=== PATIENT | female | born 1940 | race Caucasian/White ===

== ENCOUNTER 2019-07-03 07:07 | Emergency (ER) | payer OTHER, MEDICARE ==
[2019-07-03 07:18] VITALS: BMI 29.7
--- NOTE | 2019-07-03 08:08 | PDOC ---
*Physical Exam - Vital Signs Last Vital Signs Temp Pulse Resp BP Pulse Ox 97.9 F 79 14 140/61 97 07/03/19 07:13 07/03/19 07:13 07/03/19 07:13 07/03/19 07:13 07/03/19 07:13 Heart Score/ECG Review - ECG Impressions Comment:: 07/03/19 11:06 HR 78, NSR, normal intervals, no deviations, no UBALDO/STD/TWI ED Treatment Course - LABORATORY CBC & Chemistry Diagram: 07/03/19 08:27 07/03/19 08:11 Medical Decision Making - Medical Decision Making 07/03/19 08:05 Patient seen and evaluated as pre-attending with Dr. Mccann (PGY-2) and Dr. Davis (Attending) 07/03/19 08:25 78 y/o female here with RUE tingling that starts in her shoulder and runs through all of her fingers. No numbness, no weakness. Reports she cleaned out the attic recently and carried a trash bag with her R arm but no known trauma. PMHx of CKD, recurrent UTI's, and melanoma (s/p resection in 2014). Symptoms started yesterday evening and persisted into the morning prompting her visit to the ED. States she took one Aspirin because she was afraid she was having a stroke. On PE patient is well appearing and has intact DTR's, 4+ strength, full ROM with no point tenderness. Will evaluate for muscle strain, electrolyte derangement, also consider r/o ACS , nerve impingement. Consider CA mets, however will refrain from CT at this time - patient does have FH of sister with Breast CA w/mets; patient reports no weight loss or weakness. 07/03/19 10:20 Troponin (-) x1, Cr 1.8 (previous Cr 0.9 in 2012) - patient has known h/o CKD follows w/nephrology EKG w/o acute ischemic change as documented in EKG section of EMR. XR w/scalpular calcifications - no signs suggesting tumor including no soft tissue swelling, fracture Will d/c with instruction to f/u with PMD and Finance And Administration Manager. Patient given copy of EKG and labs. Discharge - Discharge Information Problems reviewed: Yes Clinical Impression/Diagnosis: Arm paresthesia, left Condition: Good Disposition: HOME - Follow up/Referral Referrals: Emilee Monreal MD [Staff Physician] - Chris Sifuentes MD [Primary Care Provider] - - Patient Discharge Instructions Patient Printed Discharge Instructions: DI for Arm Pain Additional Instructions: You were seen today for numbness/tinging in your left arm. Your EKG and blood work did not show any life threatening problems. Your symptoms are not likely to be from your heart or a stroke. Your xrays showed a possible buildup of calcification in your left shoulder. This could be the cause of your symptoms. It could also be a change related to your history of melanoma. You should discuss this finding with your primary care doctor and your process mold technician. You can take over the counter Tylenol as needed for pain. Take as directed on the package insert. Do not exceed the recommended dosage. Follow up with your primary care doctor in the next week. You will need to call to make an appointment. The number is included in this packet. A copy of today s results are attached to this packet including the xray disc. Take it to the appointment so your doctor can review them. Go to the nearest emergency department if your condition worsens or you feel like you need additional emergency evaluation. Print Language: SWEDISH - Post Discharge Activity
[2019-07-03] MEDS ORDERED: ACETAMINOPHEN 325 MG TABLET (FP) PO ONE (08:12)
--- NOTE | 2019-07-03 08:12 | PDOC ---
History of Present Illness - General Chief Complaint: Pain, Acute Stated Complaint: left arm pain Time Seen by Provider: 07/03/19 07:35 History Source: Patient, Old Records, Other ([facility]) Exam Limitations: No Limitations - History of Present Illness Initial Comments: HPI: 78 y/o female presenting to [facility] ER complaining of numbness / tingling to the posterolateral aspect of her left arm with episodic radiation to all five digits of the right hand. Started last evening at bedtime. Denies weakness or difficulty moving the shoulder, elbow, wrist, or hand. Denies trauma to the extremity or to the back. Denies associated chest pain or SOB. Initially believed the symptoms were related to her sleeping position, but the symptoms did not completely resolved after changing position. Reports the symptoms have significantly improved but not resolved at time of presentation. Expressed concern that she was having a heart attack. Took an ASA early this morning. Of note, the pt started Cefuroxime on 30 Jun 2019 for acute cystitis. Medical Hx: - HTN - CKD, stage unknown - H/o Melanoma, s/p resection in 2014 - reportedly clean margins Review of Systems: In addition to that documented in the HPI above, the additional ROS was obtained : Constitutional- Denies fevers or chills Head- Denies vision changes ENMT- Denies sore throat CV- Denies chest pain Resp- Denies SOB GI- Denies abd pain, vomiting, or diarrhea - Denies painful urination MSK- Denies recent trauma Skin- Denies new rashes Neuro- Per HPI Endocrine- Denies polyuria Heme- Denies bleeding or bruising Physical Examination: Vital signs and nursing notes reviewed. Constitutional- Well-developed, well-nourished elderly adult female in no acute distress or obvious discomfort. Found sitting upright on edge of hospital bed. Answered all questions appropriately and completely. Head- Normocephalic. No obvious external signs of trauma. Neck- Supple, trachea is midline. Cardiovascular / Chest- Regular rate and regular rhythm. No murmur, rubs, clicks , or gallops. Peripheral pulses- radial pulses full. No anterior chest wall discomfort with palpation. Respiratory- Breathing unlabored. Equal chest rise and fall. Clear to auscultation bilaterally. No stridor, no wheezing, no rhonchi. Left Arm- Proximal and distal strength 5/5. Strong and symmetrical consultant electronics strength when compared to right. Normal active ROM of shoulder, elbow, wrist, and digits. No tenderness to palpation. Sensation not exacerbated by palpation. Extremity appears warm and well perfused. Back- No midline or paraspinal tenderness to cervical or thoracic regions. No signs of trauma or other skin changes. Noted well healed surgical scar overlying left upper back. Neuro- Alert and oriented x4. Moving all four extremities spontaneously. No facial asymmetry. No slurred speech. Skin- Warm, dry, and intact. Psych- Affect- appropriate. Mood- normal. Speech was non-labored, non- pressured. MDM: 78 y/o female presenting with left arm paresthesia with episodic radiation to left hand x1 day. Afebrile. Vitals unremarkable for hypotension or tachycardia. Physical exam as described above. Suspect possible radiculopathy secondary to sleeping position vs arthritic changes vs muscle strain. Low suspicion for ACS/ anginal equivalent vs CVA/TIA vs occult trauma. Considered radiculopathy secondary to metastatic disease as previous lesion was overlying the left shoulder. EKG unremarkable for ischemic findings. Reviewed laboratory data. No anemia. Troponin not elevated. Noted Cr elevation. Documented history of CKD, stage [facility]. Pt reports she has already been referred to a bread icer. Reviewed plain films and radiology reports. Noted calcifications. Will provide the pt with results and copies of the plain films. Encouraged pt to f/u closely with her PCP and with her assistive technology trainer with concern for possible metastatic lesion vs arthritic changes. Discussed physical exam findings, laboratory results, and xrays findings with pt. Answered all questions. Provided return precautions. pt expressed verbal understanding and agreement with plan to discharge home with outpatient follow up. Provided copies of todays results. Chris Mccann M.D., PGY2 Emergency Medicine Resident Past History - Past Medical History Allergies/Adverse Reactions: Allergies Allergy/AdvReac Type Severity Reaction Status Date / Time No Known Allergies Allergy Verified 07/03/19 07:18 Cancer: Yes (MELANOMA ON BACK- REMOVED) COPD: No GI Disorders: (frequent uti) HTN: Yes (CONTROLLED) - Psycho Social/Smoking Cessation Hx Smoking History: Never smoked Hx Alcohol Use: No Drug/Substance Use Hx: No *Physical Exam - Vital Signs Last Vital Signs Temp Pulse Resp BP Pulse Ox 97.9 F 79 14 140/61 97 07/03/19 07:13 07/03/19 07:13 07/03/19 07:13 07/03/19 07:13 07/03/19 07:13 ED Treatment Course - LABORATORY CBC & Chemistry Diagram: 07/03/19 08:27 07/03/19 08:11 - RADIOLOGY Radiology Studies Ordered: Category Date Time Status CHEST PA & LAT [RAD] Stat Radiology 07/03/19 08:11 Ordered SHOULDER-RIGHT [RAD] Stat Radiology 07/03/19 08:11 Ordered Discharge - Discharge Information Problems reviewed: Yes Clinical Impression/Diagnosis: Arm paresthesia, left Condition: Good Disposition: HOME - Admission No - Follow up/Referral Referrals: Chris Sifuentes MD [Primary Care Provider] - Emilee Monreal MD [Staff Physician] - - Patient Discharge Instructions Patient Printed Discharge Instructions: DI for Arm Pain Additional Instructions: You were seen today for numbness/tinging in your left arm. Your EKG and blood work did not show any life threatening problems. Your symptoms are not likely to be from your heart or a stroke. Your xrays showed a possible buildup of calcification in your left shoulder. This could be the cause of your symptoms. It could also be a change related to your history of melanoma. You should discuss this finding with your primary care doctor and your assistive technology trainer. You can take over the counter Tylenol as needed for pain. Take as directed on the package insert. Do not exceed the recommended dosage. Follow up with your primary care doctor in the next week. You will need to call to make an appointment. The number is included in this packet. A copy of today s results are attached to this packet including the xray disc. Take it to the appointment so your doctor can review them. Go to the nearest emergency department if your condition worsens or you feel like you need additional emergency evaluation. Print Language: GREEK - Post Discharge Activity
[2019-07-03] MEDS ORDERED: ACETAMINOPHEN 325 MG TABLET (FP) ONE (08:17)
[2019-07-03 08:41] LABS: BASO % 0.4 % (0-2.0); EOS % 2.7 % (0-4.5); HEMATOCRIT 41.1 % (32.4-45.2); HEMOGLOBIN 13.3 GM/dL (10.7-15.3); LYMPH % 5.7 % (8-40); MCH 27.8 pg (25.7-33.7); MCHC 32.3 g/dl (32.0-36.0); MEAN CELL VOLUME 85.9 fl (80-96); MEAN PLT VOLUME 7.8 fl (7.5-11.1); MONO % 5.3 % (3.8-10.2); NEUT % 85.9 % (42.8-82.8); PLATELET COUNT 266 K/MM3 (134-434); RBC 4.78 M/mm3 (3.60-5.2); RDW 13.5 % (11.6-15.6); WHITE BLOOD COUNT 11.4 K/mm3 (4.0-10.0)
[2019-07-03 09:14] LABS: ALBUMIN 3.6 g/dl (3.4-5.0); BILIRUBIN,TOTAL 0.5 mg/dL (0.2-1); BLOOD UREA NITROGEN 24.3 mg/dL (7-18); CALCIUM 9.5 mg/dL (8.5-10.1); CREATININE 1.8 mg/dL (0.55-1.3); MAGNESIUM 2.5 mg/dL (1.8-2.4); PHOSPHOROUS 3.2 mg/dL (2.5-4.9); POTASSIUM 4.7 mmol/L (3.5-5.1); TOT PROT 7.3 g/dl (6.4-8.2)
[2019-07-03 10:29] VITALS: BP 152/72; PULSE 80; TEMP 98.1
--- NOTE | 2019-07-03 10:32 | PDOC ---
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 Patient first noted symptoms around 11 PM when she was lying on her left arm and felt paresthesias to her lateral left upper arm, repositioned and the symptoms improved, but then noted recurrence throughout the night and upon awakening this morning had separate [id number]-lydlkjs in her second through fifth digits of her left hand, so she presents for evaluation. No associated weakness, no headache/vision change/ speech change/nausea/neck pain/deficit. No history of same, presents with concern for stroke. - Physicial Exam PE: 07/03/19 10:29 Vitals are normal Pleasant elderly woman seated comfortably in stretcher in no acute distress Healed left scapular incisional scar without recurrence of mass or skin abnormality 5 out of 5 flexion/extension of all upper extremity joints, including hand strength. Sensation intact. NEURO: Mental status: The patient is alert and oriented x3. Cranial nerves: Cranial nerves II through XII are intact Motor: The upper extremities are 5 over 5 in all muscle groups. The lower extremities are 5 over 5 in all muscle groups. No pronator drift. Sensation: Sensation is intact to light touch throughout. Cerebellar: Vwakeu-eeyjvy-jscr is normal in both upper extremities. Heel-knee- gallego is normal in both lower extremities. Reflexes: 2+ and symmetric in the upper and lower extremities. Gait: Normal. Heel and toe walking are normal. Tandem gait is normal. - Medical Decision Making 07/03/19 10:29 78-year-old female presents with subjective paresthesia of left upper extremity in a nondermatomal/radicular distribution and without any red flags on history or physical exam to suggest focal neurological process. Labs were sent and are within normal limits/baseline, patient has CKD and is under the care of Dr. Davidson, has second appointment next week X-ray shows calcifications in the area of melanoma surgery, will encourage patient to follow-up with dermatology for further imaging as needed No indication for focal neurological or infectious or vascular process, understands return criteria Heart Score/ECG Review #1 ECG reviewed & interpreted by me at: 07:25 General ECG Interpretation: Sinus Rhythm, Normal Rate (78), Normal Intervals ( qtc 412), No acute ischemic changes
--- NOTE | 2019-07-03 10:33 | EKG ---
Test Reason : Blood Pressure : / mmHG Vent. Rate : 078 BPM Atrial Rate : 078 BPM P-R Int : 152 ms QRS Dur : 094 ms QT Int : 362 ms P-R-T Axes : 048 -42 033 degrees QTc Int : 412 ms NORMAL SINUS RHYTHM LEFT AXIS DEVIATION ABNORMAL ECG WHEN COMPARED WITH ECG OF 21-AUG-2007 15:40, NO SIGNIFICANT CHANGE WAS FOUND Confirmed by Zana Collins MD ([id number]) on 07/03/2019 10:32:53 AM Referred By: Confirmed By:Zana Collins MD
== END 2019-07-03 10:15 | disposition home or self-care (01) ==
LOC: JER 07:07
DX: R20.2 Paresthesia of skin (principal); I12.9 Hypertensive chronic kidney disease with stage 1 through stage 4 chronic kidney disease, or unspecified chronic kidney disease; N18.9 Chronic kidney disease, unspecified; Z85.820 Personal history of malignant melanoma of skin; Z87.440 Personal history of urinary (tract) infections
CPT/HCPCS: 36415; 71046-TC-FY; 73030-TC-RT-FY; 80053; 82550; 83735; 84100; 84484; 85025; 93005; 93010; 99285-25

== ENCOUNTER 2021-01-21 20:40 | Inpatient (IN) | payer OTHER, MEDICARE ==
[2021-01-21] MEDS ORDERED: ACETAMINOPHEN 1000 MG/100 ML VIAL (NON FORMULARY) IVPB ONE (21:26)
[2021-01-21] MEDS ORDERED: LIDOCAINE 5% TOPICAL PATCH TP ONE (21:26)
[2021-01-21] MEDS ORDERED: LIDOCAINE PATCH REMOVAL MC SCH (22:00)
[2021-01-21] MEDS ORDERED: ACETAMINOPHEN INJECTION 100 ML IVPB ONE (22:06)
[2021-01-21] MEDS ORDERED: LIDOCAINE 5% TOPICAL PATCH ONE (22:06)
[2021-01-21 22:30] LABS: BASO % 1.5 % (0-2.0); EOS % 0.1 % (0-4.5); HEMATOCRIT 35.8 % (32.4-45.2); HEMOGLOBIN 11.9 GM/dL (10.7-15.3); MCH 27.9 pg (25.7-33.7); MCHC 33.1 g/dl (32.0-36.0); MEAN CELL VOLUME 84.3 fl (80-96); MEAN PLT VOLUME 7.8 fl (7.5-11.1); NEUT % 87.4 % (42.8-82.8); PLATELET COUNT 183 10^3/uL (134-434); RBC 4.25 M/mm3 (3.60-5.2)
[2021-01-21 22:50] LABS: CALCIUM 8.8 mg/dL (8.5-10.1)
[2021-01-21 22:51] LABS: ALBUMIN 3.5 g/dl (3.4-5.0)
[2021-01-21 22:54] LABS: CREATININE 2.2 mg/dL (0.55-1.3)
[2021-01-21 22:55] LABS: BILIRUBIN,TOTAL 0.5 mg/dL (0.2-1)
[2021-01-21 22:56] LABS: TOT PROT 7.3 g/dl (6.4-8.2)
[2021-01-21 23:22] LABS: EPI CELLS 12 /uL (0-25.1); HYALINE CASTS 0 /uL (0-3.1); PH,URINE 5.5 (5.0-8.0); URINE APPEARANCE TURBID; URINE BACTERIA 6581 /uL (0-1359); URINE BILIRUBIN NEGATIVE (NEGATIVE); URINE COLOR YELLOW; URINE GLUCOSE (UA) NEGATIVE (NEGATIVE); URINE KETONE 1+ (NEGATIVE); URINE LEUK ESTERASE 3+ (NEGATIVE); URINE NITRITE NEGATIVE (NEGATIVE); URINE PROTEIN 1+ (NEGATIVE); URINE RBC 47 /uL (0-23.9); URINE WBC 2766 /uL (0-25.8)
[2021-01-21] MEDS ORDERED: SODIUM CHLORIDE 0.9% 500 ML INFUS.BAG IV ONE (23:24)
[2021-01-21] MEDS ORDERED: METHOCARBAMOL 500 MG TABLET PO ONE (23:24)
[2021-01-21] MEDS ORDERED: DEXAMETHASONE SOD PHOSPHATE 10 MG/1 ML VIAL IVPUSH ONE (23:25)
[2021-01-21] MEDS ORDERED: DEXAMETHASONE SOD PHOSPHATE 10 MG/1 ML VIAL ONE (23:35)
[2021-01-21] MEDS ORDERED: CEFTRIAXONE 1 GM/50 ML BAG ONE (23:36)
[2021-01-21] MEDS ORDERED: METHOCARBAMOL 500 MG TABLET ONE (23:48)
[2021-01-22] MEDS ORDERED: ACETAMINOPHEN 325 MG TABLET (FP) PO PRN (03:05)
[2021-01-22] MEDS ORDERED: SODIUM CHLORIDE 1,000 ML IV SCH (03:15)
[2021-01-22 04:46] VITALS: BMI 29.5
[2021-01-22 08:24] LABS: HEMATOCRIT 34.8 % (32.4-45.2); HEMOGLOBIN 11.5 GM/dL (10.7-15.3); MCH 28.2 pg (25.7-33.7); MCHC 33.1 g/dl (32.0-36.0); MEAN CELL VOLUME 85.1 fl (80-96); MEAN PLT VOLUME 8.1 fl (7.5-11.1); PLATELET COUNT 167 10^3/uL (134-434); RBC 4.09 M/mm3 (3.60-5.2); RDW 13.8 % (11.6-15.6); WHITE BLOOD COUNT 4.4 K/mm3 (4.0-10.0)
[2021-01-22 08:45] LABS: CALCIUM 8.5 mg/dL (8.5-10.1)
[2021-01-22 08:46] LABS: BLOOD UREA NITROGEN 25.7 mg/dL (7-18)
[2021-01-22 08:49] LABS: CREATININE 1.9 mg/dL (0.55-1.3)
[2021-01-22] MEDS ORDERED: cefTRIAXone SODIUM 1 GM VIAL ONE (08:58)
[2021-01-22] MEDS ORDERED: DEXTROSE 5%-WATER - 50 ML IVPB ONE (08:58)
[2021-01-22] MEDS: LIDOCAINE 5% TOPICAL PATCH TP SCH (09:54)
[2021-01-22] MEDS: ENOXAPARIN NA (PORCINE) 40 MG/0.4 ML DISP.SYRIN SQ SCH (09:57)
[2021-01-22] MEDS: amLODIPine BESYLATE 5 MG TABLET (FP) PO SCH (09:57)
[2021-01-22] MEDS: FAMOTIDINE 20 MG TABLET PO SCH (09:58)
[2021-01-22] MEDS ORDERED: CEFTRIAXONE 1 GM in DEXTROSE 5%-WATER - 50 ML IVPB ONE (10:00)
[2021-01-22] MEDS ORDERED: ACETAMINOPHEN 325 MG TABLET (FP) PO STA (10:42)
[2021-01-22] MEDS: GABAPENTIN 100 MG CAPSULE PO SCH ×2 (13:11→22:30)
[2021-01-22] MEDS ORDERED: GABAPENTIN 100 MG CAPSULE PO SCH (14:00)
[2021-01-22] MEDS ORDERED: SODIUM CHLORIDE 0.45% 1,000 ML IV SCH (16:15)
[2021-01-22] MEDS: ATORVASTATIN CA 10 MG TABLET (FP) PO SCH (21:42)
[2021-01-22] MEDS: LIDOCAINE PATCH REMOVAL MC SCH (21:42)
[2021-01-22] MEDS: MELATONIN 1 MG TABLET PO SCH (22:30)
[2021-01-23] MEDS: GABAPENTIN 100 MG CAPSULE PO SCH ×3 (06:25→21:04)
[2021-01-23 07:42] LABS: BASO % 0.3 % (0-2.0); EOS % 0.4 % (0-4.5); HEMATOCRIT 34.2 % (32.4-45.2); HEMOGLOBIN 11.3 GM/dL (10.7-15.3); LYMPH % 17.3 % (8-40); MCHC 32.9 g/dl (32.0-36.0); MEAN PLT VOLUME 8.2 fl (7.5-11.1); MONO % 10.2 % (3.8-10.2); NEUT % 71.8 % (42.8-82.8); PLATELET COUNT 200 10^3/uL (134-434); RBC 4.03 M/mm3 (3.60-5.2); RDW 14.2 % (11.6-15.6); WHITE BLOOD COUNT 6.7 K/mm3 (4.0-10.0)
[2021-01-23 07:48] LABS: ALBUMIN 2.9 g/dl (3.4-5.0); BLOOD UREA NITROGEN 30.4 mg/dL (7-18); CALCIUM 8.5 mg/dL (8.5-10.1); MAGNESIUM 2.5 mg/dL (1.8-2.4)
[2021-01-23 07:51] LABS: CREATININE 1.7 mg/dL (0.55-1.3)
[2021-01-23 07:53] LABS: BILIRUBIN,TOTAL 0.2 mg/dL (0.2-1); TOT PROT 6.2 g/dl (6.4-8.2)
[2021-01-23] MEDS ORDERED: cefTRIAXone SODIUM 1 GM VIAL ONE (10:46)
[2021-01-23] MEDS ORDERED: DEXTROSE 5%-WATER - 50 ML IVPB ONE (10:46)
[2021-01-23] MEDS: LIDOCAINE 5% TOPICAL PATCH TP SCH (11:08)
[2021-01-23] MEDS: FAMOTIDINE 20 MG TABLET PO SCH (11:08)
[2021-01-23] MEDS: ENOXAPARIN NA (PORCINE) 40 MG/0.4 ML DISP.SYRIN SQ SCH (11:08)
[2021-01-23] MEDS: amLODIPine BESYLATE 5 MG TABLET (FP) PO SCH (11:08)
[2021-01-23] MEDS: CEFTRIAXONE 1 GM in DEXTROSE 5%-WATER - 50 ML IVPB SCH (11:08)
[2021-01-23] MEDS: ACETAMINOPHEN 500 MG TABLET (FP) PO SCH ×2 (13:13→18:45)
[2021-01-23] MEDS: MELATONIN 1 MG TABLET PO SCH (21:04)
[2021-01-23] MEDS: LIDOCAINE PATCH REMOVAL MC SCH (21:04)
[2021-01-23] MEDS: ATORVASTATIN CA 10 MG TABLET (FP) PO SCH (21:04)
[2021-01-24] MEDS: ACETAMINOPHEN 500 MG TABLET (FP) PO SCH ×3 (02:08→14:11)
[2021-01-24] MEDS: GABAPENTIN 100 MG CAPSULE PO SCH ×2 (05:49→14:30)
[2021-01-24 08:34] VITALS: BP 131/70; PULSE 54; TEMP 98.5
[2021-01-24] MEDS ORDERED: DEXTROSE 5%-WATER - 50 ML IVPB ONE (09:20)
[2021-01-24] MEDS ORDERED: cefTRIAXone SODIUM 1 GM VIAL ONE (09:20)
[2021-01-24 09:21] LABS: BASO % 0.5 % (0-2.0); EOS % 3.1 % (0-4.5); HEMATOCRIT 34.9 % (32.4-45.2); HEMOGLOBIN 11.7 GM/dL (10.7-15.3); LYMPH % 18.2 % (8-40); MCH 28.4 pg (25.7-33.7); MCHC 33.5 g/dl (32.0-36.0); MEAN CELL VOLUME 84.6 fl (80-96); MEAN PLT VOLUME 7.9 fl (7.5-11.1); MONO % 7.5 % (3.8-10.2); NEUT % 70.7 % (42.8-82.8); PLATELET COUNT 192 10^3/uL (134-434); RBC 4.12 M/mm3 (3.60-5.2); RDW 13.9 % (11.6-15.6); WHITE BLOOD COUNT 5.5 K/mm3 (4.0-10.0)
[2021-01-24] MEDS: amLODIPine BESYLATE 5 MG TABLET (FP) PO SCH (09:26)
[2021-01-24] MEDS: FAMOTIDINE 20 MG TABLET PO SCH (09:26)
[2021-01-24] MEDS: LIDOCAINE 5% TOPICAL PATCH TP SCH (09:26)
[2021-01-24] MEDS: ENOXAPARIN NA (PORCINE) 40 MG/0.4 ML DISP.SYRIN SQ SCH (09:27)
[2021-01-24] MEDS: CEFTRIAXONE 1 GM in DEXTROSE 5%-WATER - 50 ML IVPB SCH (09:27)
[2021-01-24 09:47] LABS: CALCIUM 8.5 mg/dL (8.5-10.1)
[2021-01-24 09:52] LABS: ALBUMIN 2.7 g/dl (3.4-5.0); BLOOD UREA NITROGEN 28.9 mg/dL (7-18); CREATININE 1.8 mg/dL (0.55-1.3); MAGNESIUM 2.2 mg/dL (1.8-2.4)
[2021-01-24 09:56] LABS: BILIRUBIN,TOTAL 0.3 mg/dL (0.2-1)
== END 2021-01-24 14:10 | disposition home or self-care (01) | DRG 552 ==
LOC: JER 20:40 → JERBED 23:46 → J7W 01-22 04:02
PROVIDERS: ADMIT Internal Medicine; ATTEND Nurse Practitioner Acute Care
DX: M51.16 Intervertebral disc disorders with radiculopathy, lumbar region (principal); N17.9 Acute kidney failure, unspecified; N39.0 Urinary tract infection, site not specified; I12.9 Hypertensive chronic kidney disease with stage 1 through stage 4 chronic kidney disease, or unspecified chronic kidney disease; N18.9 Chronic kidney disease, unspecified; E78.5 Hyperlipidemia, unspecified; K21.9 Gastro-esophageal reflux disease without esophagitis; M48.061 Spinal stenosis, lumbar region without neurogenic claudication; M51.34 Other intervertebral disc degeneration, thoracic region; M43.16 Spondylolisthesis, lumbar region; Z85.820 Personal history of malignant melanoma of skin
CPT/HCPCS: 36415; 71045-TC-FY; 72131-TC; 76775-TC; 80048; 80053; 81003; 82570; 83735; 84300; 85025; 85027; 87086; 87186; 93005; 93010; 93970-TC; 97116-GP; 97161-GP; 99285-25; C9803; J0131; J1100; U0003; U0005

== ENCOUNTER 2022-01-13 12:52 | Emergency (ER) | payer OTHER, MEDICARE ==
[2022-01-13 13:14] VITALS: RESP 18; TEMP 98.6; BMI 27.4
[2022-01-13 16:17] LABS: BASO % 0.5 % (0-2.0); HEMATOCRIT 33.5 % (32.4-45.2); HEMOGLOBIN 11.1 GM/dL (10.7-15.3); LYMPH % 23.5 % (8-40); MCH 28.7 pg (25.7-33.7); MEAN CELL VOLUME 87.1 fl (80-96); MEAN PLT VOLUME 7.4 fl (7.5-11.1); PLATELET COUNT 223 10^3/uL (134-434); RBC 3.85 M/mm3 (3.60-5.2); RDW 13.6 % (11.6-15.6); WHITE BLOOD COUNT 6.9 K/mm3 (4.0-10.0)
[2022-01-13 16:37] LABS: CALCIUM 8.7 mg/dL (8.5-10.1)
[2022-01-13 16:38] LABS: ALBUMIN 3.8 g/dl (3.4-5.0); BLOOD UREA NITROGEN 27.8 mg/dL (7-18)
[2022-01-13 16:41] LABS: CREATININE 1.9 mg/dL (0.55-1.3)
[2022-01-13 16:42] LABS: BILIRUBIN,TOTAL 0.4 mg/dL (0.2-1); TOT PROT 7.1 g/dl (6.4-8.2)
[2022-01-13 16:46] LABS: N-TERMINAL BNP 1338.9 pg/ml (5-450)
[2022-01-13 18:17] LABS: EPI CELLS 1 /uL (0-25.1); HYALINE CASTS 0 /uL (0-3.1); PH,URINE 6.5 (5.0-8.0); URINE APPEARANCE CLEAR; URINE BACTERIA 5530 /uL (0-1359); URINE BILIRUBIN NEGATIVE (NEGATIVE); URINE COLOR YELLOW; URINE GLUCOSE (UA) NEGATIVE (NEGATIVE); URINE KETONE NEGATIVE (NEGATIVE); URINE LEUK ESTERASE 1+ (NEGATIVE); URINE NITRITE NEGATIVE (NEGATIVE); URINE PROTEIN NEGATIVE (NEGATIVE); URINE UROBILINOGEN 0.2 mg/dL (0.2-1.0); URINE WBC 234 /uL (0-25.8)
[2022-01-13] MEDS ORDERED: FUROSEMIDE 20 MG TABLET (FP) PO ONE (18:21)
[2022-01-13] MEDS ORDERED: FUROSEMIDE 20 MG TABLET (FP) ONE (18:36)
[2022-01-13 18:42] VITALS: BP 156/82; PULSE 80
[2022-01-13 19:10] LABS: URINE RBC 0 /uL (0-23.9)
== END 2022-01-13 18:48 | disposition home or self-care (01) ==
LOC: JER 12:52
DX: R60.0 Localized edema (principal)
CPT/HCPCS: 36415; 71046-TC-FY; 80053; 81003; 83880; 84484; 85025; 87086; 87186; 93005; 93010; 93971-TC; 99285-25

== ENCOUNTER 2022-06-13 11:52 | Inpatient (IN) | payer OTHER, MEDICARE ==
[2022-06-13] MEDS ORDERED: SODIUM CHLORIDE 0.9% 500 ML INFUS.BAG IV ONE (12:18)
[2022-06-13 13:28] LABS: BASO % 0.2 % (0-2.0); EOS % 0.2 % (0-4.5); HEMATOCRIT 38.1 % (32.4-45.2); HEMOGLOBIN 12.5 GM/dL (10.7-15.3); MCH 28.6 pg (25.7-33.7); MCHC 32.7 g/dl (32.0-36.0); MEAN CELL VOLUME 87.4 fl (80-96); MEAN PLT VOLUME 7.9 fl (7.5-11.1); MONO % 8.4 % (3.8-10.2); NEUT % 85.2 % (42.8-82.8); PLATELET COUNT 371 10^3/uL (134-434); RBC 4.36 M/mm3 (3.60-5.2); RDW 14.2 % (11.6-15.6); WHITE BLOOD COUNT 8.1 K/mm3 (4.0-10.0)
[2022-06-13 13:30] LABS: INR 1.35 (0.83-1.09); PROTHROMBIN TIME (PATIENT) 15.6 SEC (9.7-13.0)
[2022-06-13 13:33] LABS: ACTIVATED PTT 28.6 SECONDS (25.2-36.5); EPI CELLS 25 /uL (0-25.1); HYALINE CASTS 2 /uL (0-3.1); PH,URINE 5.5 (5.0-8.0); URINE APPEARANCE CLEAR; URINE BACTERIA 73 /uL (0-1359); URINE BILIRUBIN NEGATIVE (NEGATIVE); URINE COLOR YELLOW; URINE GLUCOSE (UA) NEGATIVE (NEGATIVE); URINE KETONE 1+ (NEGATIVE); URINE LEUK ESTERASE NEGATIVE (NEGATIVE); URINE NITRITE NEGATIVE (NEGATIVE); URINE PROTEIN 1+ (NEGATIVE); URINE WBC 9 /uL (0-25.8)
[2022-06-13 13:56] LABS: CALCIUM 8.9 mg/dL (8.5-10.1)
[2022-06-13 13:57] LABS: ALBUMIN 2.8 g/dl (3.4-5.0); BLOOD UREA NITROGEN 61.9 mg/dL (7-18); MAGNESIUM 2.4 mg/dL (1.8-2.4)
[2022-06-13 14:00] LABS: CREATININE 1.8 mg/dL (0.55-1.3); PHOSPHOROUS 3.1 mg/dL (2.5-4.9)
[2022-06-13 14:01] LABS: BILIRUBIN,TOTAL 0.8 mg/dL (0.2-1); TOT PROT 7.2 g/dl (6.4-8.2)
[2022-06-13 15:33] LABS: URINE RBC 36 /uL (0-23.9)
[2022-06-13] MEDS ORDERED: DEXTROSE 5%-0.45% SALINE 1,000 ML IV SCH (18:15)
[2022-06-13] MEDS ORDERED: ACETAMINOPHEN 1000 MG/100 ML BAG IVPB ONE (20:10)
[2022-06-13] MEDS ORDERED: ONDANSETRON 4 MG/2 ML VIAL IVPUSH ONE (20:18)
[2022-06-13] MEDS ORDERED: ACETAMINOPHEN INJECTION 100 ML IVPB ONE (20:22)
[2022-06-13] MEDS ORDERED: ONDANSETRON 4 MG/2 ML VIAL ONE (20:46)
[2022-06-13] MEDS ORDERED: REMDESIVIR 200 MG in SODIUM CHLORIDE 250 ML IVPB ONE (22:00)
[2022-06-14] MEDS ORDERED: ACETAMINOPHEN 1000 MG/100 ML BAG IVPB PRN (07:53)
[2022-06-14 08:28] LABS: HEMATOCRIT 35.4 % (32.4-45.2); HEMOGLOBIN 11.6 GM/dL (10.7-15.3); MCH 28.4 pg (25.7-33.7); MCHC 32.7 g/dl (32.0-36.0); MEAN CELL VOLUME 86.8 fl (80-96); PLATELET COUNT 311 10^3/uL (134-434); RBC 4.08 M/mm3 (3.60-5.2); RDW 13.9 % (11.6-15.6); WHITE BLOOD COUNT 6.3 K/mm3 (4.0-10.0)
[2022-06-14 08:55] LABS: ALBUMIN 2.5 g/dl (3.4-5.0); BILIRUBIN,TOTAL 0.6 mg/dL (0.2-1); BLOOD UREA NITROGEN 50.4 mg/dL (7-18); PHOSPHOROUS 2.2 mg/dL (2.5-4.9); TOT PROT 6.6 g/dl (6.4-8.2)
[2022-06-14 08:57] LABS: CALCIUM 8.8 mg/dL (8.5-10.1); CREATININE 1.6 mg/dL (0.55-1.3); MAGNESIUM 2.2 mg/dL (1.8-2.4)
[2022-06-14 09:40] VITALS: BMI 20.8
[2022-06-14] MEDS: CEFAZOLIN SODIUM 2 GM in DEXTROSE 5%-WATER 100 ML IVPB SCH ×3 (09:57→23:33)
[2022-06-14] MEDS ORDERED: REMDESIVIR 100 MG in SODIUM CHLORIDE 250 ML IVPB SCH (10:00)
[2022-06-14] MEDS ORDERED: ROCURONIUM BROMIDE 50 MG/5 ML SYRINGE ONE ×2 (12:11→13:55)
[2022-06-14] MEDS ORDERED: PROPOFOL 20 ML ONE (12:11)
[2022-06-14] MEDS ORDERED: ceFAZolin SODIUM 1 GM VIAL IVPB ONE (12:43)
[2022-06-14] MEDS ORDERED: BENZOIN/ALOE VERA/STORAX/TOLU 58 ML BOTTLE ONE (13:12)
[2022-06-14] MEDS ORDERED: SUGAMMADEX SODIUM 200 MG/2 ML VIAL ONE (14:19)
[2022-06-14] MEDS ORDERED: ONDANSETRON 4 MG/2 ML VIAL IVPUSH PRN ×3 (14:27→16:49)
[2022-06-14] MEDS ORDERED: ACETAMINOPHEN INJECTION 100 ML IVPB ONE (14:44)
[2022-06-14] MEDS ORDERED: LACTATED RINGERS SOLUTION 1,000 ML IV SCH ×2 (15:45→16:49)
[2022-06-14] MEDS ORDERED: POTASSIUM PHOSPHATE 30 MM in SODIUM CHLORIDE 500 ML IVPB ONE ×2 (16:00→16:49)
[2022-06-14] MEDS ORDERED: DEXTROSE 5%-0.45% SALINE 1,000 ML IV SCH (16:49)
[2022-06-14] MEDS ORDERED: ATORVASTATIN CA 10 MG TABLET (FP) PO SCH ×2 (22:00)
[2022-06-14] MEDS: ACETAMINOPHEN 1000 MG/100 ML BAG IVPB PRN (22:41)
[2022-06-15] MEDS: CEFAZOLIN SODIUM 2 GM in DEXTROSE 5%-WATER 100 ML IVPB SCH ×4 (03:20→21:25)
[2022-06-15] MEDS ORDERED: SODIUM HYPOCHLORITE 0.25%- 473 ML BULK BOTTLE TP SCH (08:00)
[2022-06-15] MEDS: SODIUM HYPOCHLORITE 0.25%- 473 ML BULK BOTTLE TP SCH ×2 (08:30→11:29)
[2022-06-15 09:17] LABS: BASO % 0.1 % (0-2.0); EOS % 0.2 % (0-4.5); HEMATOCRIT 30.9 % (32.4-45.2); HEMOGLOBIN 10.2 GM/dL (10.7-15.3); LYMPH % 4.2 % (8-40); MCH 28.8 pg (25.7-33.7); MCHC 32.9 g/dl (32.0-36.0); MEAN CELL VOLUME 87.6 fl (80-96); MEAN PLT VOLUME 7.5 fl (7.5-11.1); MONO % 5.7 % (3.8-10.2); NEUT % 89.8 % (42.8-82.8); PLATELET COUNT 284 10^3/uL (134-434); RBC 3.53 M/mm3 (3.60-5.2); RDW 14.3 % (11.6-15.6); WHITE BLOOD COUNT 8.7 K/mm3 (4.0-10.0)
[2022-06-15 09:30] LABS: CALCIUM 7.6 mg/dL (8.5-10.1)
[2022-06-15 09:31] LABS: BLOOD UREA NITROGEN 54.4 mg/dL (7-18); MAGNESIUM 1.7 mg/dL (1.8-2.4)
[2022-06-15 09:34] LABS: PHOSPHOROUS 3.2 mg/dL (2.5-4.9)
[2022-06-15 09:36] LABS: BILIRUBIN,TOTAL 0.3 mg/dL (0.2-1); TOT PROT 5.1 g/dl (6.4-8.2)
[2022-06-15 09:39] LABS: ALBUMIN 1.8 g/dl (3.4-5.0)
[2022-06-15] MEDS ORDERED: FAMOTIDINE 20 MG TABLET NGT SCH (10:00)
[2022-06-15] MEDS ORDERED: amLODIPine BESYLATE 5 MG TABLET (FP) PO SCH ×2 (10:00)
[2022-06-15] MEDS ORDERED: FAMOTIDINE 20 MG TABLET PO SCH ×2 (10:00)
[2022-06-15] MEDS ORDERED: FAMOTIDINE 40 MG/5 ML ORAL SUSPENSION NGT SCH (10:06)
[2022-06-15] MEDS: amLODIPine BESYLATE 5 MG TABLET (FP) NGT SCH (11:30)
[2022-06-15] MEDS ORDERED: [UNRECOGNIZED DRUG - OTHER] IVPB ONE (12:56)
[2022-06-15] MEDS ORDERED: MAGNESIUM SULFATE IVPB ONE (12:56)
[2022-06-15] MEDS ORDERED: MAGNESIUM SULF 50% (8.12 MEQ/2 ML-1 GM VIAL) IVPB ONE (13:00)
[2022-06-15] MEDS ORDERED: CEFAZOLIN SODIUM 2 GM VIAL ONE (13:57)
[2022-06-15] MEDS ORDERED: MAGNESIUM 1GM/D5W - 1 GM/100 ML IVPB IVPB ONE (14:15)
[2022-06-15] MEDS: DEXTROSE 5%-0.45% SALINE 1,000 ML IV SCH (14:24)
[2022-06-15] MEDS: ATORVASTATIN CA 10 MG TABLET (FP) NGT SCH (21:25)
[2022-06-16] MEDS: CEFAZOLIN SODIUM 2 GM in DEXTROSE 5%-WATER 100 ML IVPB SCH ×2 (03:17→10:21)
[2022-06-16 09:44] LABS: HEMATOCRIT 28.7 % (32.4-45.2); HEMOGLOBIN 9.5 GM/dL (10.7-15.3); MCH 28.7 pg (25.7-33.7); MCHC 33.2 g/dl (32.0-36.0); MEAN CELL VOLUME 86.6 fl (80-96); MEAN PLT VOLUME 7.5 fl (7.5-11.1); PLATELET COUNT 292 10^3/uL (134-434); RBC 3.31 M/mm3 (3.60-5.2); RDW 14.9 % (11.6-15.6); WHITE BLOOD COUNT 11.6 K/mm3 (4.0-10.0)
[2022-06-16] MEDS: DEXTROSE 5%-0.45% SALINE 1,000 ML IV SCH (10:25)
[2022-06-16 11:05] LABS: BLOOD UREA NITROGEN 43.7 mg/dL (7-18); CALCIUM 7.7 mg/dL (8.5-10.1); MAGNESIUM 2.2 mg/dL (1.8-2.4)
[2022-06-16 11:08] LABS: CREATININE 1.7 mg/dL (0.55-1.3); PHOSPHOROUS 1.9 mg/dL (2.5-4.9)
[2022-06-16] MEDS ORDERED: POTASSIUM CHLORIDE ORAL LIQUID 20 MEQ/15 ML PO ONE (13:20)
[2022-06-16] MEDS ORDERED: SODIUM PHOSPHATE - 20 MM in DEXTROSE 5%-WATER - 250 ML IVPB ONE (13:21)
[2022-06-16] MEDS: CEFTRIAXONE 1 GM in DEXTROSE 5%-WATER - 50 ML IVPB SCH (13:37)
[2022-06-16] MEDS: SODIUM HYPOCHLORITE 0.25%- 473 ML BULK BOTTLE TP SCH (13:50)
[2022-06-16] MEDS: ATORVASTATIN CA 10 MG TABLET (FP) NGT SCH (22:01)
[2022-06-17] MEDS: ONDANSETRON 4 MG/2 ML VIAL IVPUSH PRN (02:28)
[2022-06-17] MEDS: DEXTROSE 5%-0.45% SALINE 1,000 ML IV SCH ×2 (02:28→10:45)
[2022-06-17 09:44] LABS: HEMATOCRIT 29.7 % (32.4-45.2); HEMOGLOBIN 9.6 GM/dL (10.7-15.3); MCH 28.4 pg (25.7-33.7); MCHC 32.5 g/dl (32.0-36.0); MEAN CELL VOLUME 87.6 fl (80-96); MEAN PLT VOLUME 7.7 fl (7.5-11.1); PLATELET COUNT 299 10^3/uL (134-434); RBC 3.39 M/mm3 (3.60-5.2); RDW 14.6 % (11.6-15.6); WHITE BLOOD COUNT 12.2 K/mm3 (4.0-10.0)
[2022-06-17 10:19] LABS: CALCIUM 7.5 mg/dL (8.5-10.1)
[2022-06-17 10:20] LABS: BLOOD UREA NITROGEN 33.9 mg/dL (7-18); MAGNESIUM 1.9 mg/dL (1.8-2.4)
[2022-06-17 10:24] LABS: CREATININE 1.5 mg/dL (0.55-1.3); PHOSPHOROUS 1.9 mg/dL (2.5-4.9)
[2022-06-17] MEDS: amLODIPine BESYLATE 5 MG TABLET (FP) NGT SCH (10:44)
[2022-06-17] MEDS: CEFTRIAXONE 1 GM in DEXTROSE 5%-WATER - 50 ML IVPB SCH (10:44)
[2022-06-17] MEDS ORDERED: POTASSIUM PHOSPHATE 30 MM in SODIUM CHLORIDE 500 ML IVPB ONE (15:00)
[2022-06-17] MEDS: SODIUM HYPOCHLORITE 0.25%- 473 ML BULK BOTTLE TP SCH ×2 (17:47→19:55)
[2022-06-17] MEDS ORDERED: MELATONIN 5 MG TABLETS PO ONE (21:29)
[2022-06-17] MEDS: ATORVASTATIN CA 10 MG TABLET (FP) NGT SCH (22:50)
[2022-06-18 09:08] LABS: HEMATOCRIT 27.5 % (32.4-45.2); HEMOGLOBIN 9.2 GM/dL (10.7-15.3); MCH 29.1 pg (25.7-33.7); MCHC 33.4 g/dl (32.0-36.0); MEAN CELL VOLUME 87.2 fl (80-96); PLATELET COUNT 281 10^3/uL (134-434); RBC 3.16 M/mm3 (3.60-5.2); RDW 14.6 % (11.6-15.6); WHITE BLOOD COUNT 8.9 K/mm3 (4.0-10.0)
[2022-06-18 09:41] LABS: CALCIUM 7.7 mg/dL (8.5-10.1)
[2022-06-18 09:42] LABS: BLOOD UREA NITROGEN 25.1 mg/dL (7-18)
[2022-06-18 09:43] LABS: MAGNESIUM 1.8 mg/dL (1.8-2.4)
[2022-06-18 09:46] LABS: CREATININE 1.3 mg/dL (0.55-1.3); PHOSPHOROUS 2.9 mg/dL (2.5-4.9)
[2022-06-18] MEDS ORDERED: traMADol HCL 50 MG TABLET PO PRN (10:00)
[2022-06-18] MEDS: amLODIPine BESYLATE 5 MG TABLET (FP) NGT SCH (11:20)
[2022-06-18] MEDS: ONDANSETRON 4 MG/2 ML VIAL IVPUSH PRN (11:21)
[2022-06-18] MEDS: SODIUM HYPOCHLORITE 0.25%- 473 ML BULK BOTTLE TP SCH (11:23)
[2022-06-18] MEDS: CEFTRIAXONE 1 GM in DEXTROSE 5%-WATER - 50 ML IVPB SCH (12:15)
[2022-06-18] MEDS ORDERED: METOCLOPRAMIDE HCL 10 MG TABLET (FP) PO ONE (13:30)
[2022-06-18] MEDS: MELATONIN 5 MG TABLETS PO PRN (22:22)
[2022-06-18] MEDS: ATORVASTATIN CA 10 MG TABLET (FP) NGT SCH (22:22)
[2022-06-19] MEDS: CEFTRIAXONE 1 GM in DEXTROSE 5%-WATER - 50 ML IVPB SCH (09:59)
[2022-06-19] MEDS: amLODIPine BESYLATE 5 MG TABLET (FP) PO SCH (10:00)
[2022-06-19] MEDS: SODIUM HYPOCHLORITE 0.25%- 473 ML BULK BOTTLE TP SCH (10:02)
[2022-06-19] MEDS: ATORVASTATIN CA 10 MG TABLET (FP) PO SCH (21:20)
[2022-06-19] MEDS: MELATONIN 5 MG TABLETS PO PRN (21:40)
[2022-06-20] MEDS: CEFTRIAXONE 1 GM in DEXTROSE 5%-WATER - 50 ML IVPB SCH (09:30)
[2022-06-20] MEDS: SODIUM HYPOCHLORITE 0.25%- 473 ML BULK BOTTLE TP SCH (09:31)
[2022-06-20] MEDS: amLODIPine BESYLATE 5 MG TABLET (FP) PO SCH (09:31)
[2022-06-20 09:39] LABS: HEMATOCRIT 28.1 % (32.4-45.2); HEMOGLOBIN 9.4 GM/dL (10.7-15.3); MCH 29.5 pg (25.7-33.7); MCHC 33.5 g/dl (32.0-36.0); MEAN CELL VOLUME 87.9 fl (80-96); MEAN PLT VOLUME 7.4 fl (7.5-11.1); PLATELET COUNT 291 10^3/uL (134-434); RDW 14.4 % (11.6-15.6)
[2022-06-20 10:03] LABS: CHLORIDE 110 mmol/L (98-107); SODIUM 141 mmol/L (136-145)
[2022-06-20 10:07] LABS: ANION GAP 4 MMOL/L (8-16); BLOOD UREA NITROGEN 17.2 mg/dL (7-18); CALCIUM 7.8 mg/dL (8.5-10.1); CO2 27 mmol/L (21-32); GLUCOSE,RANDOM 100 mg/dL (74-106)
[2022-06-20 10:08] LABS: ALBUMIN 1.8 g/dl (3.4-5.0)
[2022-06-20 10:12] LABS: CREATININE 1.2 mg/dL (0.55-1.3); SGOT/AST 13 U/L (15-37); SGPT/ALT < 6 U/L (13-61)
[2022-06-20 10:13] LABS: BILIRUBIN,TOTAL 0.4 mg/dL (0.2-1)
[2022-06-20 10:14] LABS: ALK PHOS 50 U/L (45-117); TOT PROT 5.2 g/dl (6.4-8.2)
[2022-06-20 11:20] LABS: ANISOCYTOSIS 0; HELMET CELLS 0; HOWELL-JOLLY BODIES 0; MACROCYTOSIS 0; OVALOCYTE 0; ROULEAU 0; SICKELED CELLS 0; TARGET CELLS 0; TEAR DROP CELLS 0; TOXIC GRANULATION 0
[2022-06-20] MEDS: ATORVASTATIN CA 10 MG TABLET (FP) PO SCH (22:54)
[2022-06-20] MEDS: MELATONIN 5 MG TABLETS PO PRN (22:58)
[2022-06-21 07:59] LABS: BASO % 0.4 % (0-2.0); EOS % 1.1 % (0-4.5); HEMATOCRIT 27.1 % (32.4-45.2); HEMOGLOBIN 9.1 GM/dL (10.7-15.3); LYMPH % 11.2 % (8-40); MCH 29.3 pg (25.7-33.7); MCHC 33.7 g/dl (32.0-36.0); MEAN CELL VOLUME 87.1 fl (80-96); MEAN PLT VOLUME 7.2 fl (7.5-11.1); MONO % 6.7 % (3.8-10.2); NEUT % 80.6 % (42.8-82.8); PLATELET COUNT 273 10^3/uL (134-434); RBC 3.11 M/mm3 (3.60-5.2); RDW 14.2 % (11.6-15.6); WHITE BLOOD COUNT 9.7 K/mm3 (4.0-10.0)
[2022-06-21 08:20] LABS: CHLORIDE 110 mmol/L (98-107); SODIUM 139 mmol/L (136-145)
[2022-06-21 08:33] LABS: ALBUMIN 1.8 g/dl (3.4-5.0); ANION GAP 4 MMOL/L (8-16); BLOOD UREA NITROGEN 16.3 mg/dL (7-18); CALCIUM 7.6 mg/dL (8.5-10.1); CO2 26 mmol/L (21-32); GLUCOSE,RANDOM 96 mg/dL (74-106)
[2022-06-21 08:35] LABS: CREATININE 1.1 mg/dL (0.55-1.3); SGPT/ALT < 6 U/L (13-61)
[2022-06-21 08:36] LABS: SGOT/AST 15 U/L (15-37)
[2022-06-21 08:37] LABS: BILIRUBIN,TOTAL 0.4 mg/dL (0.2-1)
[2022-06-21 08:38] LABS: ALK PHOS 48 U/L (45-117)
[2022-06-21] MEDS: amLODIPine BESYLATE 5 MG TABLET (FP) PO SCH (09:33)
[2022-06-21] MEDS: SODIUM HYPOCHLORITE 0.25%- 473 ML BULK BOTTLE TP SCH (09:33)
[2022-06-21] MEDS: CEFTRIAXONE 1 GM in DEXTROSE 5%-WATER - 50 ML IVPB SCH (09:33)
[2022-06-21] MEDS ORDERED: BENZOCAINE/MENTH/CETYLPYRD CL 1 EACH LOZENGE MM PRN (10:07)
[2022-06-21] MEDS: ACETAMINOPHEN 1000 MG/100 ML BAG IVPB PRN (10:18)
[2022-06-21] MEDS: ATORVASTATIN CA 10 MG TABLET (FP) PO SCH (22:41)
[2022-06-21] MEDS: MELATONIN 5 MG TABLETS PO PRN (22:51)
[2022-06-22 08:28] VITALS: TEMP 98.6
[2022-06-22] MEDS: CEFTRIAXONE 1 GM in DEXTROSE 5%-WATER - 50 ML IVPB SCH (09:53)
[2022-06-22] MEDS: amLODIPine BESYLATE 5 MG TABLET (FP) PO SCH (09:53)
[2022-06-22] MEDS: SODIUM HYPOCHLORITE 0.25%- 473 ML BULK BOTTLE TP SCH (09:53)
[2022-06-22 10:10] LABS: BASO % 0.6 % (0-2.0); EOS % 0.9 % (0-4.5); HEMATOCRIT 27.6 % (32.4-45.2); HEMOGLOBIN 8.9 GM/dL (10.7-15.3); LYMPH % 12.6 % (8-40); MCH 28.3 pg (25.7-33.7); MCHC 32.3 g/dl (32.0-36.0); MEAN CELL VOLUME 87.7 fl (80-96); MEAN PLT VOLUME 7.5 fl (7.5-11.1); MONO % 7.3 % (3.8-10.2); NEUT % 78.6 % (42.8-82.8); PLATELET COUNT 317 10^3/uL (134-434); RBC 3.15 M/mm3 (3.60-5.2); RDW 14.2 % (11.6-15.6); WHITE BLOOD COUNT 8.8 K/mm3 (4.0-10.0)
[2022-06-22 10:19] LABS: CHLORIDE 108 mmol/L (98-107); SODIUM 140 mmol/L (136-145)
[2022-06-22 10:30] LABS: ALBUMIN 1.8 g/dl (3.4-5.0); ANION GAP 2 MMOL/L (8-16); BLOOD UREA NITROGEN 18.8 mg/dL (7-18); CALCIUM 8.1 mg/dL (8.5-10.1); CO2 30 mmol/L (21-32); GLUCOSE,RANDOM 99 mg/dL (74-106)
[2022-06-22 10:33] LABS: CREATININE 1.2 mg/dL (0.55-1.3); SGOT/AST 15 U/L (15-37)
[2022-06-22 10:35] LABS: BILIRUBIN,TOTAL 0.4 mg/dL (0.2-1); TOT PROT 5.1 g/dl (6.4-8.2)
[2022-06-22 10:36] LABS: ALK PHOS 50 U/L (45-117); SGPT/ALT < 6 U/L (13-61)
[2022-06-22 15:20] VITALS: BP 140/62; PULSE 80; RESP 18
[2022-06-22] MEDS ORDERED: ACETAMINOPHEN 500 MG TABLET (FP) PO PRN (15:37)
== END 2022-06-22 16:23 | DRG 329 ==
LOC: JER 11:52 → JERBED 20:07 → J7W 23:39 → J8W 06-14 18:31
PROVIDERS: ADMIT Internal Medicine; ATTEND Internal Medicine
PROC: 0W9G0ZZ Drainage of Peritoneal Cavity, Open Approach (ICD-10-PCS; 2022-06-14)
PROC: 0YQ50ZZ Repair Right Inguinal Region, Open Approach (ICD-10-PCS; principal; 2022-06-14 12:30)
PROC: 0DB80ZZ Excision of Small Intestine, Open Approach (ICD-10-PCS; 2022-06-14 12:30)
DX: K40.30 Unilateral inguinal hernia, with obstruction, without gangrene, not specified as recurrent (principal); U07.1 COVID-19; N17.9 Acute kidney failure, unspecified; I24.8 Other forms of acute ischemic heart disease; E78.5 Hyperlipidemia, unspecified; K21.9 Gastro-esophageal reflux disease without esophagitis; I12.9 Hypertensive chronic kidney disease with stage 1 through stage 4 chronic kidney disease, or unspecified chronic kidney disease; N18.9 Chronic kidney disease, unspecified; E86.0 Dehydration; K57.90 Diverticulosis of intestine, part unspecified, without perforation or abscess without bleeding; G62.9 Polyneuropathy, unspecified
CPT/HCPCS: 0241U-QW; 36415; 71045-TC-FY; 72170-TC-FY; 74176-TC; 80048; 80053; 81003; 82436; 82570; 82962; 83605; 83735; 84100; 84133; 84156; 84300; 84484; 85025; 85027; 85610; 85730; 86850; 86900; 86901; 87070; 87076; 87086; 87205; 88302-TC; 88307-TC; 93005; 93010; 94760; 97116-GP; 97161-GP; 99285-25; C9399

== ENCOUNTER 2022-10-15 15:51 | Emergency (ER) | payer OTHER, MEDICARE ==
[2022-10-15 16:01] VITALS: BP 169/64; PULSE 66; RESP 18; TEMP 98.1; BMI 24.6
[2022-10-15 17:30] LABS: PH,URINE 5.5 (5.0-8.0); URINE APPEARANCE CLEAR; URINE BILIRUBIN NEGATIVE (NEGATIVE); URINE COLOR YELLOW; URINE GLUCOSE (UA) NEGATIVE (NEGATIVE); URINE KETONE NEGATIVE (NEGATIVE); URINE LEUK ESTERASE NEGATIVE (NEGATIVE); URINE NITRITE NEGATIVE (NEGATIVE); URINE PROTEIN TRACE (NEGATIVE); URINE UROBILINOGEN 0.2 mg/dL (0.2-1.0)
[2022-10-15 17:33] LABS: BASO % 0.7 % (0-2.0); EOS % 2.1 % (0-4.5); HEMATOCRIT 33.3 % (32.4-45.2); HEMOGLOBIN 10.8 GM/dL (10.7-15.3); LYMPH % 25.7 % (8-40); MCH 27.8 pg (25.7-33.7); MCHC 32.5 g/dl (32.0-36.0); MEAN CELL VOLUME 85.5 fl (80-96); MEAN PLT VOLUME 7.7 fl (7.5-11.1); MONO % 9.5 % (3.8-10.2); PLATELET COUNT 257 10^3/uL (134-434); RBC 3.89 M/mm3 (3.60-5.2); RDW 13.6 % (11.6-15.6); WHITE BLOOD COUNT 4.5 K/mm3 (4.0-10.0)
[2022-10-15 17:45] LABS: INR 0.98 (0.83-1.09); PROTHROMBIN TIME (PATIENT) 11.4 SEC (9.7-13.0)
[2022-10-15 17:48] LABS: ACTIVATED PTT 32.6 SECONDS (25.2-36.5)
[2022-10-15 17:57] LABS: POTASSIUM 4.8 mmol/L (3.5-5.1)
[2022-10-15 17:59] LABS: CALCIUM 8.8 mg/dL (8.5-10.1)
[2022-10-15 18:00] LABS: ALBUMIN 3.5 g/dl (3.4-5.0); BLOOD UREA NITROGEN 32.4 mg/dL (7-18); MAGNESIUM 2.1 mg/dL (1.8-2.4)
[2022-10-15 18:03] LABS: CREATININE 1.6 mg/dL (0.55-1.3)
[2022-10-15 18:05] LABS: BILIRUBIN,TOTAL 0.3 mg/dL (0.2-1); TOT PROT 7.4 g/dl (6.4-8.2)
[2022-10-15 18:08] LABS: N-TERMINAL BNP 914.4 pg/ml (5-450)
== END 2022-10-15 19:17 | disposition left against medical advice (07) ==
LOC: JER 15:51
DX: R22.43 Localized swelling, mass and lump, lower limb, bilateral (principal); R05.9 Cough, unspecified; I12.9 Hypertensive chronic kidney disease with stage 1 through stage 4 chronic kidney disease, or unspecified chronic kidney disease; N18.9 Chronic kidney disease, unspecified; R60.9 Edema, unspecified
CPT/HCPCS: 36415; 71046-TC-FY; 80053; 81003; 83735; 83880; 85025; 85610; 85730; 87086; 87186; 93005; 93010; 99285-25